=== PATIENT | female | born 1965 | race Caucasian/White ===

== ENCOUNTER 2020-08-15 18:39 | Emergency (ER) | payer OTHER ==
[2020-08-15] MEDS ORDERED: CLINDAMYCIN 600 MG/D5% WATER 0 ML IV ONE (19:47)
[2020-08-15] MEDS ORDERED: ONDANSETRON HCL 4 MG/2 ML VIAL ONE (19:47)
[2020-08-15] MEDS ORDERED: CEFTRIAXONE SODIUM 2 GM VIAL ONE (19:47)
[2020-08-15 19:48] LABS: BASOPHILS % (AUTO) 0.3 % (0.0-5.0); EOSINOPHILS % (AUTO) 1.1 % (0.0-8.0); HEMATOCRIT 40.9 % (36-48); LYMPHOCYTES % (AUTO) 11.9 % (21.0-51.0); MEAN CORPUSCULAR HEMOGLOBIN 27.6 pg (27.0-33.0); MEAN CORPUSCULAR HGB CONC 33.5 g/dL (32.0-36.0); MEAN CORPUSCULAR VOLUME 82.5 fL (79-99); MONOCYTES % (AUTO) 8.5 % (3.0-13.0); NEUTROPHILS % (AUTO) 77.9 % (40.0-77.0); PLATELET COUNT (AUTO) 278 K/uL (130-400); RED BLOOD CELL COUNT(AUTO) 4.96 MIL/uL (4.00-5.50); RED CELL DISTRIBUTION WIDTH 13.4 % (11.0-15.5); WHITE BLOOD COUNT (AUTO) 11.4 K/uL (4.8-10.8)
[2020-08-15] MEDS ORDERED: KETOROLAC TROMETHAMINE 30MG/ML ONE (19:48)
[2020-08-15] MEDS ORDERED: SODIUM CHLORIDE 0.9% 100 ML IV ONE (19:48)
[2020-08-15] MEDS ORDERED: MORPHINE SULFATE 2 MG/ML 1ML SYG ONE (19:48)
[2020-08-15] MEDS ORDERED: CLINDAMYCIN 900 MG/D5% WATER 50 ML IV ONE (19:52)
[2020-08-15 19:59] LABS: APPEARANCE,URINE Clear (CLEAR); BILIRUBIN,URINE Negative (NEGATIVE); COLOR,URINE Yellow (YELLOW); GLUCOSE, URINE (UA) Negative (NEGATIVE); KETONES,URINE Negative (NEGATIVE); LEUKOCYTE ESTERASE ,URINE Negative (NEGATIVE); NITRATE,URINE Negative (NEGATIVE); OCCULT BLOOD,URINE Negative (NEGATIVE); PROTEIN,URINE Negative (NEGATIVE); UROBILINOGEN,URINE 0.2 mg/dL (0.2-1.0)
[2020-08-15 20:05] LABS: INR 0.99 (0.85-1.15); PARTIAL THROMBOPLASTIN TIME 29.6 SEC (26.3-35.5); PROTHROMBIN TIME 10.7 SEC (9.6-11.6)
[2020-08-15 20:06] LABS: CREATININE 0.7 mg/dL (0.5-1.5); POTASSIUM 3.5 mmol/L (3.5-5.1)
[2020-08-15 20:13] LABS: ALBUMIN 3.7 g/dL (3.5-5.0); BILIRUBIN,TOTAL 1.1 mg/dL (0.2-1.0); CRP QUANTITATIVE 51.3 mg/L (0.00-9.0); TOTAL PROTEIN, SERUM 7.8 g/dL (6.0-8.3)
[2020-08-15 21:03] LABS: ERYTHROCYTE SEDIMENTATION RATE 25 MM/HR (0-30)
[2020-08-15] MEDS ORDERED: HYDROCODONE/ACETAMINOPHEN 10/325 MG TAB ONE (21:49)
[2020-08-15] MEDS ORDERED: HYDROCODONE/ACETAMINOPHEN 5/325 MG TAB ONE (21:56)
== END 2020-08-15 22:08 | disposition home or self-care (01) ==
LOC: EDH 18:39
DX: L03.115 Cellulitis of right lower limb (principal); F41.9 Anxiety disorder, unspecified; F32.9 Major depressive disorder, single episode, unspecified; F90.9 Attention-deficit hyperactivity disorder, unspecified type; E11.9 Type 2 diabetes mellitus without complications; I10 Essential (primary) hypertension; E78.00 Pure hypercholesterolemia, unspecified; Z87.891 Personal history of nicotine dependence
CPT/HCPCS: 36415; 71045; 73630; 73700; 80053; 81003; 83605; 84145; 85025; 85610; 85651; 85730; 86140; 86900; 86901; 87040; 87088; 93005; 96365; 96375; 99285; J0696; J1885; J2405; J3490